=== PATIENT | female | born 1970 | race Caucasian/White ===

== ENCOUNTER 2018-05-02 19:40 | Emergency (ER) | payer MEDICAID ==
[2018-05-02 20:29] VITALS: BP 128/85
[2018-05-02] MEDS ORDERED: MORPHINE SULFATE 10 MG/ML INJ IV ONE (22:44)
[2018-05-02] MEDS ORDERED: ONDANSETRON HCL INJ/PF 4 MG/2 ML SDV IV ONE (22:44)
[2018-05-02] MEDS ORDERED: NORMAL SALINE 1000 ML 1,000 ML IV ONE (22:44)
--- NOTE | 2018-05-02 22:56 | ER Document Report ---
ED General - General Chief Complaint: Abdominal Pain Stated Complaint: STOMACH PAIN Time Seen by Provider: 05/02/18 22:39 Notes: Patient is a 47-year-old female presents with complaint of upper abdominal pain. Pain is mostly right upper quadrant and epigastric region. She has an unclear history and that she said when she is 2 years old she had a biopsy of her liver because she was told by her mom that her liver ducts were not growing appropriately. She has had no further treatment since that time. She says every now then she will have pain that lasts about 3 days but then eventually goes away. She has had pancreatitis before. 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 She does not drink alcohol. She does smoke. She is think she still has her gallbladder. Pain does not appear to be worse with eating. She has had some vomiting. No blood in emesis. No blood in her stool. No black or tarry stools. TRAVEL OUTSIDE OF THE [place] IN LAST 30 DAYS: No - Related Data Allergies/Adverse Reactions: metronidazole [From Flagyl] Allergy (Verified 05/02/18 19:44) Past Medical History - Social History Smoking Status: Current Every Day Smoker Frequency of alcohol use: None Drug Abuse: None Family History: Reviewed & Not Pertinent Review of Systems - Review of Systems Notes: My Normal Review Basic REVIEW OF SYSTEMS: CONSTITUTIONAL : Denies fever, chills, or sweats. Denies recent illness. EENT: Denies eye, ear, throat, or mouth pain or symptoms. Denies nasal or sinus congestion. CARDIOVASCULAR: Denies chest pain. RESPIRATORY: Denies cough, cold, or chest congestion. Denies shortness of breath, difficulty breathing, or wheezing. GASTROINTESTINAL: Epigastric and right upper quadrant abdominal pain. GENITOURINARY: Denies difficulty urinating, painful urination, burning, frequency, or blood in urine. FEMALE GENITOURINARY: Denies vaginal bleeding, abnormal or irregular periods. LMP: MUSCULOSKELETAL: Denies neck or back pain or joint pain or swelling. SKIN: Denies rash or skin lesions. NEUROLOGICAL: Denies altered mental status or loss of consciousness. Physical Exam - Vital signs Vitals: Temp Pulse Resp BP Pulse Ox 99.4 F 70 18 128/85 H 97 05/02/18 20:28 05/02/18 20:28 05/02/18 20:28 05/02/18 20:28 05/02/18 20:28 - Notes Notes: General Appearance: Well nourished, alert, cooperative, no acute distress, mild to moderate obvious discomfort. Vitals: reviewed, See vital signs table. Head: no swelling or tenderness to the head Eyes: PERRL, EOMI, Conjuctiva clear Mouth: No decreasd moisture Neck: Supple, no neck tenderness, No thyromegaly Lungs: No wheezing, No rales, No rhonci, No accessory muscle use, good air exchange bilaterally. Heart: Normal rate, Regular rythm, No murmur, no rub Abdomen: Normal BS, soft, No rigidity, some pain palpation over right upper quadrant epigastric region. , No guarding, no rebound, no abdominal masses, no organomegaly Extremities: strength 5/5 in all extremities, good pulses in all extremities, no swelling or tenderness in the extremities, no edema. Skin: warm, dry, appropriate color, no rash Neuro: speech clear, oriented x 3, normal affect, responds appropriately to questions. Course - Re-evaluation Re-evalutation: 05/03/18 06:37 This is chronic in the room patient is requesting to leave. Her friend who is her ride needs to get home. Patient's CBC CMP and lipase were all normal. Is no evidence of liver disease or pancreatitis on her blood work. I informed her still waiting for urine is hoping to get that back to make sure there is no signs of infection or blood in the urine which could represent possible kidney stone. Patient said she is feeling improved and was cannot wait for the urine. Talked her length about the possibility of gastritis being the most her pain is in the upper abdomen. She said she would like to try medication to help her gastritis and should follow-up with the GI doctor. I did give the number to 3 different GI doctors area to follow-up due to her recurrent chronic abdominal pain. Patient encouraged to return to ER if she has recurrent worsening abdominal pain, vomiting, fevers, or she feels unwell. Patient agrees with plan will be discharged home. Dictation of this chart was performed using voice recognition software; therefore, there may be some unintended grammatical errors. - Vital Signs Vital signs: Temp Pulse Resp BP Pulse Ox 99.4 F 70 18 128/85 H 97 05/02/18 20:28 08/20/18 20:28 05/02/18 20:28 05/02/18 20:28 05/02/18 20:28 - Laboratory Result Diagrams: 05/02/18 23:04 05/02/18 23:04 Laboratory results interpreted by me: 05/02/18 23:04 RBC 3.65 L Hgb 11.9 L Hct 34.7 L RDW 14.1 H Discharge - Discharge Clinical Impression: Abdominal pain Qualifiers: Abdominal location: unspecified location Qualified Code(s): R10.9 - Unspecified abdominal pain Condition: Good Disposition: HOME, SELF-CARE Additional Instructions: PLease take the medicaitons as prescribed. please follow up with the GI doctor for reevaluation and continued workup. Please return to the ER if you have recurrent worsennig pain, blood stools, black stools, fevers, or feel unwell. Prescriptions: Famotidine [Pepcid 40 mg Tablet] 40 mg PO DAILY #30 tablet Sucralfate [Carafate Susp 1 Gm/10 Ml Udcup] 1 gm PO ACHS 10 Days udc Referrals: ROMAN PERKINS MD [ACTIVE STAFF] - (call for close follow up appointment) FITO NOWAK MD [ACTIVE STAFF] - (call for close follow up appointment) COSMO GRIFFIN MD [ACTIVE STAFF] - (call for close follow up appointment)
[2018-05-02 23:16] LABS: ABSOLUTE LYMPHOCYTES (AUTO) 1.9 10^3/uL (0.5-4.7); ABSOLUTE MONOCYTES (AUTO) 0.3 10^3/uL (0.1-1.4); ABSOLUTE NEUT (AUTO) 2.2 10^3/uL (1.7-8.2); BASOPHILS % (AUTO) 0.4 % (0-2); HEMATOCRIT 34.7 % (36.0-47.0); HEMOGLOBIN 11.9 g/dL (12.0-15.5); LYMPHOCYTES % (AUTO) 42.3 % (13-45); MEAN CORPUSCULAR HEMOGLOBIN 32.5 pg (27.0-33.4); MEAN CORPUSCULAR HGB CONC 34.1 g/dL (32.0-36.0); MEAN CORPUSCULAR VOLUME 95 fl (80-97); PLATELET COUNT 289 10^3/uL (150-450); RED BLOOD COUNT 3.65 10^6/uL (3.72-5.28); RED CELL DISTRIBUTION WIDTH 14.1 % (11.5-14.0); SEGMENTED NEUTROPHILS % (AUTO) 49.3 % (42-78); TOTAL CELLS COUNTED % (AUTO) 100 %; WHITE BLOOD COUNT 4.4 10^3/uL (4.0-10.5)
[2018-05-02 23:36] LABS: ALANINE AMINOTRANSFERASE 35 U/L (9-52); ALBUMIN 4.2 g/dL (3.5-5.0); ALKALINE PHOSPHATASE 70 U/L (38-126); ANION GAP 9 (5-19); ASPARTATE AMINO TRANSFERASE 26 U/L (14-36); BILIRUBIN,DIRECT 0.2 mg/dL (0.0-0.4); BILIRUBIN,TOTAL 0.5 mg/dL (0.2-1.3); BLOOD UREA NITROGEN 11 mg/dL (7-20); CALCIUM 9.2 mg/dL (8.4-10.2); CARBON DIOXIDE 28 mmol/L (22-30); CHLORIDE 104 mmol/L (98-107); GLUCOSE 87 mg/dL (75-110); POTASSIUM 4.1 mmol/L (3.6-5.0); SODIUM 141.3 mmol/L (137-145); TOTAL PROTEIN 6.9 g/dL (6.3-8.2)
[2018-05-03 01:27] LABS: LIPASE 33.2 U/L (23-300)
== END 2018-05-03 01:31 | disposition home or self-care (01) ==
LOC: ER 19:40
DX: K29.70 Gastritis, unspecified, without bleeding (principal); R10.11 Right upper quadrant pain; R10.13 Epigastric pain; G89.29 Other chronic pain; F17.200 Nicotine dependence, unspecified, uncomplicated; R11.10 Vomiting, unspecified; Z87.19 Personal history of other diseases of the digestive system; Z88.1 Allergy status to other antibiotic agents
CPT/HCPCS: 99284; 96361; 96374; 96375; 36415; 83690; 85025; 80053; J2270; J2405; J7030

== ENCOUNTER → 2018-06-22 | Outpatient (CLI) | payer MEDICAID ==
--- NOTE | 2018-06-22 10:21 | WOMENS IMAGING REPORT ---
EXAM DESCRIPTION: U/S ABDOMEN LIMITED COMPLETED DATE/TIME: 06/22/2018 9:34 am REASON FOR STUDY: RIGHT UPPER QUADRANT PAIN R10.11 RIGHT UPPER QUADRANT PAIN K45.8 OTH ABDOMINAL H ERNIA WITHOUT OBSTRUCTION OR GANGRENE COMPARISON: Abdominal ultrasound 12/26/2013 TECHNIQUE: Dynamic and static grayscale images acquired of the abdomen and recorded on PACS. Additio nal selected color Doppler and spectral images recorded. LIMITATIONS: None. FINDINGS: PANCREAS: Midline pancreas unremarkable LIVER: No masses. Echotexture normal. LIVER VASCULATURE: Normal directional flow of the main portal vein and hepatic veins. GALLBLADDER: Adenomyosis along the gallbladder wall. No gallstones. No gallbladder wall thickening or pericholecystic fluid ULTRASOUND-DETECTED ROSS'S SIGN: Negative. INTRAHEPATIC DUCTS AND COMMON DUCT: Intrahepatic ducts normal caliber. Common bile duct measures 8 m m in diameter, mildly enlarged. Distal common duct not well seen due to duodenum gas INFERIOR VENA CAVA: Normal flow. AORTA: No aneurysm. RIGHT KIDNEY: Normal size. Normal echogenicity. No solid or suspicious masses. No hydronephrosis. No calcifications. PERITONEAL AND RIGHT PLEURAL SPACE: No ascites or effusions. OTHER: No other significant findings. IMPRESSION: Adenomyosis of the gallbladder. No gallstones, gallbladder wall thickening or perichole cystic fluid. Common bile duct mildly prominent TECHNICAL DOCUMENTATION: JOB ID: [id number]- All Rights Reserved Reading location - IP/workstation name: [email or web address]
== END ==
LOC: WI 08:55
PROVIDERS: ATTEND Nurse Practitioner Family
DX: K45.8 Other specified abdominal hernia without obstruction or gangrene (principal); R10.11 Right upper quadrant pain
CPT/HCPCS: 76705

== ENCOUNTER 2019-04-24 19:18 | Emergency (ER) | payer MEDICAID ==
[2019-04-24] MEDS ORDERED: TRAMADOL HCL 50 MG TABLET PO ONE (20:46)
--- NOTE | 2019-04-24 21:00 | ER Document Report ---
ED General - General Chief Complaint: Puncture Wound Stated Complaint: WOUND Time Seen by Provider: 04/24/19 20:41 Primary Care Provider: JEFF ELLIOTT NP [NO LOCAL MD] - Follow up as needed Mode of Arrival: Medic Information source: Patient TRAVEL OUTSIDE OF THE [place] IN LAST 30 DAYS: No - HPI Notes: Patient is brought in by ambulance. Patient states that she was trying to open a can of soup with scissors. She states she accidentally stabbed herself in the chest. She states that immediately after she had some trouble breathing but no longer feels that she has short of breath. She does have constant right-sided chest pain. It is worse when touched and better if left alone. It does not radiate. It is moderate in intensity and constant. She states that she has had no cough since the incident. Patient states she does not have a can dispatcher radio which is why she was using scissors to try to open the can of soup. She denies any other injuries. The pain is sharp. - Related Data Allergies/Adverse Reactions: metronidazole [From Flagyl] Allergy (Verified 04/24/19 19:28) Past Medical History - General Information source: Patient - Social History Smoking Status: Current Some Day Smoker Frequency of alcohol use: None Drug Abuse: Marijuana Family History: Reviewed & Not Pertinent Patient has suicidal ideation: No Patient has homicidal ideation: No - Past Medical History Cardiac Medical History: Denies: Hx Atrial Fibrillation, Hx Coronary Artery Disease Pulmonary Medical History: Reports: Hx COPD, Hx Pneumonia Renal/ Medical History: Denies: Hx Peritoneal Dialysis Psychiatric Medical History: Reports: Hx Bipolar Disorder, Hx Depression Review of Systems - Review of Systems Constitutional: denies: Chills, Fever Cardiovascular: Chest pain, Palpitations Respiratory: Hurts to breathe, Short of breath. denies: Cough -: Yes All other systems reviewed and negative Physical Exam - Vital signs Vitals: Temp Resp BP Pulse Ox 97.4 F 22 H 116/69 93 04/24/19 20:15 04/24/19 20:15 04/24/19 20:15 04/24/19 20:15 Interpretation: Normal - General General appearance: Appears well, Alert - HEENT Head: Normocephalic, Atraumatic Eyes: Normal Pupils: PERRL - Respiratory Respiratory status: No respiratory distress Chest status: Nontender Breath sounds: Rhonchi - Bilaterally Chest palpation: Other - Patient has a small half centimeter puncture wound to the right anterior chest. It is approximately 12:00 on the upper right breast. It is not actively bleeding. There is some mild swelling surrounding the site. - Cardiovascular Rhythm: Regular Heart sounds: Normal auscultation Murmur: No - Abdominal Inspection: Normal Distension: No distension Bowel sounds: Normal Tenderness: Nontender Organomegaly: No organomegaly - Back Back: Normal, Nontender - Extremities General upper extremity: Normal inspection, Nontender, Normal color, Normal ROM, Normal temperature General lower extremity: Normal inspection, Nontender, Normal color, Normal ROM, Normal temperature, Normal weight bearing. No: Surinder's sign - Neurological Neuro grossly intact: Yes Cognition: Normal Orientation: AAOx4 [place] Coma Scale Eye Opening: Spontaneous Yandel Coma Scale Verbal: Oriented Yandel Coma Scale Motor: Obeys Commands Yandel Coma Scale Total: 15 Speech: Normal Motor strength normal: LUE, RUE, LLE, RLE Sensory: Normal - Psychological Associated symptoms: Normal affect, Normal mood - Skin Skin Temperature: Warm Skin Moisture: Dry Skin Color: Normal Course - Re-evaluation Re-evalutation: 04/24/19 21:42 Patient reevaluated at this time. She is in no respiratory distress. Lung sounds are clear bilaterally. She is saturating 97% on room air. She is not tachycardic. - Vital Signs Vital signs: Temp Pulse Resp BP Pulse Ox 97.4 F 22 H 116/69 93 04/24/19 20:15 04/24/19 20:15 04/24/19 20:15 04/24/19 20:15 - Diagnostic Test Radiology reviewed: Image reviewed, Reports reviewed Radiology results interpreted by me: 04/24/19 20:59 I personally reviewed the patient's chest x-ray. It is a 2 view chest x-ray. There is no evidence of pneumothorax or infiltrate. Discharge - Discharge Clinical Impression: Puncture wound Condition: Stable Disposition: HOME, SELF-CARE Instructions: Puncture Wound ([facility]) Prescriptions: Cephalexin Monohydrate [Keflex 500 mg Capsule] 500 mg PO Q6H 5 Days capsule Hydrocodone/Acetaminophen [[place] 5-325 mg Tablet] 1 tab PO Q6 PRN 3 Days #10 tablet PRN Reason: Sulfamethoxazole/Trimethoprim [Bactrim Ds Tablet] 1 each PO BID 5 Days #10 tablet Referrals: JEFF ELLIOTT, AIR SUPPORT CONTROL OFFICER [NO LOCAL MD] - Follow up as needed
--- NOTE | 2019-04-24 21:16 | RADIOLOGY REPORT (SQ) ---
EXAM DESCRIPTION: XR CHEST 2 VIEWS COMPLETED DATE/TME: 04/24/2019 00:00 CLINICAL HISTORY: 48 years, Female, puncture wound COMPARISON: None. NUMBER OF VIEWS: 2 TECHNIQUE: Two views of the chest were obtained in AP and lateral projection. LIMITATIONS: None. FINDINGS: Unremarkable cardiac and mediastinal silhouette. Heart size is normal. Lungs are clear without focal opacity, pneumothorax or pleural effusions. The visualized bones are within normal limits. IMPRESSION: No acute cardiopulmonary abnormalities. copyright 2010 [employer]- All Rights Reserved
[2019-04-24] MEDS ORDERED: CEPHALEXIN 500 MG CAPSULE PO ONE (21:47)
[2019-04-24] MEDS ORDERED: HYDROCODONE/ACETAMINOPHEN 5-325 MG TABLET PO ONE (21:47)
[2019-04-24 22:55] VITALS: BP 142/78
== END 2019-04-24 22:52 | disposition home or self-care (01) ==
LOC: ER 19:18
DX: S21.131A Puncture wound without foreign body of right front wall of thorax without penetration into thoracic cavity, initial encounter (principal); R07.1 Chest pain on breathing; W27.2XXA Contact with scissors, initial encounter; F17.200 Nicotine dependence, unspecified, uncomplicated
CPT/HCPCS: 71046; 99283

== ENCOUNTER 2019-05-17 19:08 | Emergency (ER) | payer MEDICAID ==
--- NOTE | 2019-05-17 19:29 | ER Document Report ---
ED Medical Screen (RME) - General Chief Complaint: Foreign Body Stated Complaint: POSSIBLE NEEDLE STUCK IN ARM Time Seen by Provider: 05/17/19 19:26 Mode of Arrival: Ambulatory Information source: Patient Notes: 48-year-old female presented to ED for complaint of breaking off a needle in her left AC 4 days ago. She states she can still feel that the needle is there. She states that she stumbled and fell and became dizzy and injured herself and had so much pain that she shot up with cocaine 4 days ago. She states she knows it stupid and she does not usually do this but she was in a lot of pain. She states she smokes 1/2 pack a day does not drink used cocaine 4 days ago and uses marijuana. She lives alone. Patient states she has a history of bipolar depression. I have greeted and performed a rapid initial assessment of this patient. A comprehensive ED assessment and evaluation of the patient, analysis of test results and completion of medical decision making process will be conducted by an additional ED providers. TRAVEL OUTSIDE OF THE [place] IN LAST 30 DAYS: No - Related Data Allergies/Adverse Reactions: metronidazole [From Flagyl] Allergy (Verified 05/17/19 19:09) Past Medical History - Past Medical History Cardiac Medical History: Denies: Hx Atrial Fibrillation, Hx Coronary Artery Disease Pulmonary Medical History: Reports: Hx COPD, Hx Pneumonia Renal/ Medical History: Denies: Hx Peritoneal Dialysis Psychiatric Medical History: Reports: Hx Bipolar Disorder, Hx Depression Physical Exam - Vital signs Vitals: Temp Pulse Resp BP Pulse Ox 98.7 F 78 14 133/74 H 95 05/17/19 19:12 05/17/19 19:12 05/17/19 19:12 05/17/19 19:12 05/17/19 19:12 Course - Vital Signs Vital signs: Temp Pulse Resp BP Pulse Ox 98.7 F 78 14 133/74 H 95 05/17/19 19:12 05/17/19 19:12 05/17/19 19:12 05/17/19 19:12 05/17/19 19:12
--- NOTE | 2019-05-17 19:46 | RADIOLOGY REPORT (SQ) ---
EXAM DESCRIPTION: ELBOW LEFT AP/LATERAL COMPLETED DATE/TIME: 05/17/2019 7:38 pm REASON FOR STUDY: States broke needle off and arm COMPARISON: None. NUMBER OF VIEWS: Two views. TECHNIQUE: AP and lateral radiographic images acquired of the left elbow. LIMITATIONS: None. FINDINGS: MINERALIZATION: Normal. BONES: No acute fracture or dislocation. No worrisome bone lesions. JOINT: No effusion. SOFT TISSUES: A portion of a needle is seen in the anterior soft tissues. OTHER: No other significant finding. IMPRESSION: Foreign body. TECHNICAL DOCUMENTATION: JOB ID: [id number] [employer]- All Rights Reserved Reading location - IP/workstation name: [email or web address]
--- NOTE | 2019-05-17 20:59 | ER Document Report ---
ED Foreign Body - General Chief Complaint: Foreign Body Stated Complaint: POSSIBLE NEEDLE STUCK IN ARM Time Seen by Provider: 05/17/19 20:59 Mode of Arrival: Ambulatory Information source: Patient, Relative Notes: HISTORY OF PRESENT ILLNESS: Patient is a 48-year-old female with a past medical history of drug abuse who presents with a needle foreign body lodged in her left forearm. Patient reports that 3 days ago she was using IV drugs when she "lost the needle." She denies needle sharing and reports that she uses alcohol swabs to clean both the needle and the skin prior to using. She denies fevers or chills. Mechanism of injury: Using IV drugs Location: Left forearm Onset: Sudden Provocation: Movement, flexing Quality: Aching Radiation: None Severity: Mild Timing: Consistent Numbness/Tingling: None Dominant hand: Left REVIEW OF SYSTEMS: CONSTITUTIONAL : Denies fever or chills, no sweats. Denies recent illness. EENT: Denies eye, ear, throat, or mouth pain or symptoms. Denies nasal or sinus congestion. CARDIOVASCULAR: Denies chest pain. RESPIRATORY: Denies cough, cold, or chest congestion. Denies shortness of breath, difficulty breathing, or wheezing. GASTROINTESTINAL: Denies abdominal pain. Denies nausea, vomiting, or diarrhea. Denies constipation. GENITOURINARY: Denies difficulty urinating, painful urination, burning, frequency, or blood in urine. FEMALE GENITOURINARY: Denies vaginal bleeding, abnormal or irregular periods. MUSCULOSKELETAL: Positive for left forearm pain. Denies neck or back pain or joint pain or swelling. SKIN: Denies rash or skin lesions. HEMATOLOGIC : Denies easy bruising or bleeding. LYMPHATIC: Denies swollen, enlarged glands. NEUROLOGICAL: Denies weakness or paralysis or loss of use of either side. Denies problems with gait or speech. Denies sensory or motor loss. PSYCHIATRIC: Denies anxiety or stress or depression. All other systems reviewed and negative. PHYSICAL EXAMINATION: GENERAL: Well-appearing, well-nourished and in no acute distress. HEAD: Atraumatic, normocephalic. No scalp deformity, depression, or crepitance. EYES: Pupils are 3 mm and equal/round/reactive to light, extraocular movements intact, sclera anicteric, conjunctiva are normal. ENT: Nares patent bilaterally, oropharynx clear without exudates or palatal petechia. Moist mucous membranes. No tonsil hypertrophy. NECK: Normal range of motion, supple without lymphadenopathy. LUNGS: Breath sounds present, equal, and clear to auscultation bilaterally. No wheezes, rales, or rhonchi. HEART: Regular rate and rhythm without murmurs, rubs, or gallops. 2+ peripheral pulses. Normal capillary refill. ABDOMEN: Soft, nontender, nondistended. Normoactive bowel sounds. No guarding, no rebound. No masses appreciated. BACK: Normal contour, no midline tenderness. Rectal exam deferred. GENITAL/PELVC: Deferred. EXTREMITIES: Small area of swelling and ecchymosis formation to the left and capital fossa, no draining or bleeding. Normal range of motion, no obvious deformity. No pitting or edema. No cyanosis and normal capillary refill <2 seconds. NEUROLOGICAL: No focal neurological deficits. Moves all extremities spontaneou sly and on command. PSYCH: Normal mood, normal affect. No suicidal thoughts/ideations. No homicidal thoughts/ideations. No hallucinations. SKIN: Warm, dry, normal turgor, no rashes or lesions noted. ASSESSMENT AND PLAN: This patient is a 48-year-old female who presents with possible needle foreign body in the left forearm. Initial x-ray confirms metallic foreign body but cannot confirm if it is contained within the soft tissues or in the intravascular space. 1. Will obtain ultrasound and reassess. 2. Will give oral Keflex and tetanus booster. TRAVEL OUTSIDE OF THE [place] IN LAST 30 DAYS: No - HPI Location of foreign body: Elbow Onset: Other - 3 days ago Onset/Duration: Gradual Quality of pain: Achy Severity: Mild Pain Level: 1 Context: Other - Using IV drugs Associated symptoms: None Exacerbated by: Movement Relieved by: Denies Similar symptoms previously: No Recently seen / treated by doctor: No - Related Data Allergies/Adverse Reactions: metronidazole [From Flagyl] Allergy (Verified 05/17/19 19:09) Past Medical History - General Information source: Patient - Social History Smoking Status: Current Every Day Smoker Chew tobacco use (# tins/day): No Frequency of alcohol use: None Drug Abuse: Cocaine Lives with: Family Family History: Reviewed & Not Pertinent Patient has suicidal ideation: No Patient has homicidal ideation: No - Past Medical History Cardiac Medical History: Denies: Hx Atrial Fibrillation, Hx Coronary Artery Disease Pulmonary Medical History: Reports: Hx COPD, Hx Pneumonia EENT Medical History: Reports: None Neurological Medical History: Reports: None Endocrine Medical History: Reports: None Renal/ Medical History: Reports: None. Denies: Hx Peritoneal Dialysis Malignancy Medical History: Reports: None GI Medical History: Reports: None Musculoskeletal Medical History: Reports None Skin Medical History: Reports None Psychiatric Medical History: Reports: Hx Bipolar Disorder, Hx Depression Traumatic Medical History: Reports: None Infectious Medical History: Reports: None Past Surgical History: Reports: Hx Hysterectomy - Immunizations Immunizations up to date: Yes Review of Systems - Review of Systems Constitutional: No symptoms reported EENT: No symptoms reported Cardiovascular: No symptoms reported Respiratory: No symptoms reported Gastrointestinal: No symptoms reported Genitourinary: No symptoms reported Female Genitourinary: No symptoms reported Musculoskeletal: See HPI, Joint swelling Skin: No symptoms reported Hematologic/Lymphatic: No symptoms reported Neurological/Psychological: No symptoms reported -: Yes All other systems reviewed and negative Physical Exam - Vital signs Vitals: Temp Pulse Resp BP Pulse Ox 98.7 F 78 14 133/74 H 95 05/17/19 19:12 05/17/19 19:12 05/17/19 19:12 05/17/19 19:12 05/17/19 19:12 Interpretation: Normal - General General appearance: Appears well, Alert - HEENT Head: Normocephalic, Atraumatic Eyes: Normal Pupils: PERRL - Respiratory Respiratory status: No respiratory distress Chest status: Nontender Breath sounds: Normal Chest palpation: Normal - Cardiovascular Rhythm: Regular Heart sounds: Normal auscultation Murmur: No - Abdominal Inspection: Normal Distension: No distension Bowel sounds: Normal Tenderness: Nontender Organomegaly: No organomegaly - Back Back: Normal, Nontender - Extremities General upper extremity: Normal inspection, Nontender, Normal color, Normal ROM, Normal temperature General lower extremity: Normal inspection, Nontender, Normal color, Normal ROM, Normal temperature, Normal weight bearing. No: Surinder's sign - Neurological Neuro grossly intact: Yes Cognition: Normal Orientation: AAOx4 [place] Coma Scale Eye Opening: Spontaneous [place] Coma Scale Verbal: Oriented Yandel Coma Scale Motor: Obeys Commands [place] Coma Scale Total: 15 Speech: Normal Motor strength normal: LUE, RUE, LLE, RLE Sensory: Normal - Psychological Associated symptoms: Normal affect, Normal mood - Skin Skin Temperature: Warm Skin Moisture: Dry Skin Color: Normal Course - Re-evaluation Re-evalutation: 05/17/19 23:43 Ultrasound confirms that the metallic foreign body is only 2.6 mm into the subcutaneous space and does not contain within the intravascular space. Will discharge the patient home with strict return precautions and follow-up with surgery. All results were explained to and discussed with the patient, and all questions addressed and answered for the patient. The patient voices both understanding and agreeing with the plan. - Vital Signs Vital signs: Temp Pulse Resp BP Pulse Ox 98.7 F 78 14 133/74 H 95 05/17/19 19:12 05/17/19 19:12 05/17/19 19:12 05/17/19 19:12 05/17/19 19:12 - Diagnostic Test Radiology reviewed: Image reviewed, Reports reviewed Discharge - Discharge Clinical Impression: Foreign body (FB) in soft tissue Condition: Good Disposition: HOME, SELF-CARE Instructions: Retained Subcutaneous Foreign Object ([facility]) Additional Instructions: You have been evaluated in the Emergency Department for have any foreign body lodged in your left forearm. While here, you had an ultrasound that confirms the foreign body is not in a blood vessel and it is now safe to be discharged home. Please follow-up with your primary physician as well as surgery as instructed in 1 week. Return to the Emergency Department if you experience increased swelling of your arm, drainage, high fevers, or any other concerning symptoms. Prescriptions: Cephalexin Monohydrate [Keflex 500 mg Capsule] 500 mg PO Q6H 7 Days #28 capsule Naproxen Sodium [Naproxen Sodium ER] 500 mg PO DAILY #30 tablet.sa Referrals: SAMEERA FORREST MD [ACTIVE STAFF] - Follow up as needed Print Language: [place]
[2019-05-17] MEDS ORDERED: CEPHALEXIN 500 MG CAPSULE PO ONE (21:35)
[2019-05-17] MEDS ORDERED: TRAMADOL HCL 50 MG TABLET PO ONE (21:35)
[2019-05-17] MEDS ORDERED: DIPH/PERTUSS(ACELL)/TETANUS VAC/PF 0.5 ML SYR (>=10YO) IM ONE (21:35)
--- NOTE | 2019-05-17 22:33 | RADIOLOGY REPORT (SQ) ---
Ultrasound left antecubital fossa limited on 05/17/2019 at 9:58 PM CLINICAL INDICATION: Foreign body in left antecubital fossa COMPARISON: Left elbow x-ray from 05/17/2019 FINDINGS: Limited sonographic imaging is performed throughout the area of interest in the left antecubital fossa. There is a echogenic focus in the antecubital fossa subcutaneous tissues corresponding to the broken portion of a needle visualized on the x-ray. No mass or fluid collection is noted. IMPRESSION: Echogenic focus in the subcutaneous tissues corresponding to the broken needle visualized in the antecubital fossa subcutaneous tissues relatively superficially in the soft tissues only approximately 2.6 mm from the skin surface.
[2019-05-17 23:59] VITALS: BP 142/72
== END 2019-05-17 23:57 | disposition home or self-care (01) ==
LOC: ER 19:08
DX: S50.852A Superficial foreign body of left forearm, initial encounter (principal); W45.8XXA Other foreign body or object entering through skin, initial encounter; Y93.89 Activity, other specified; F14.10 Cocaine abuse, uncomplicated; M25.40 Effusion, unspecified joint; J44.9 Chronic obstructive pulmonary disease, unspecified; Z88.1 Allergy status to other antibiotic agents
CPT/HCPCS: 76882; 90471; 90715; 99284

== ENCOUNTER 2019-05-23 10:19 | Day surgery (SDC) | payer MEDICAID ==
[~2019-05-23 10:19] MED LIST: ACETAMINOPHEN 0 MG/0 ML RTUPB IV ONE; ACETAMINOPHEN 1,000 MG/100 ML RTUPB IV SCH; CEFAZOLIN SODIUM 2 GM in DEXTROSE 5%-WATER 100 ML IV PRN; RINGERS SOLUTION,LACTATED 1,000 ML IV PRN
[2019-05-23] MEDS ORDERED: ALBUTEROL SULFATE 0.083% NEB 2.5 MG/3 ML AMPUL NEB ONE (11:00)
[2019-05-23] MEDS ORDERED: MIDAZOLAM 2 MG/2 ML INJ ONE (11:05)
[2019-05-23] MEDS ORDERED: MORPHINE SULFATE 10 MG/ML INJ ONE (11:06)
[2019-05-23] MEDS ORDERED: PROPOFOL INJ 200 MG/20 ML VIAL IV ONE ×2 (11:06→11:15)
[2019-05-23] MEDS ORDERED: ONDANSETRON HCL INJ/PF 4 MG/2 ML SDV ONE (11:14)
[2019-05-23] MEDS ORDERED: FENTANYL CITRATE INJ/PF 100 MCG/2 ML AMPUL ONE (11:14)
[2019-05-23 11:42] LABS: HEMATOCRIT 41.7 % (36.0-47.0); HEMOGLOBIN 13.9 g/dL (12.0-15.5); MEAN CORPUSCULAR HEMOGLOBIN 30.5 pg (27.0-33.4); MEAN CORPUSCULAR HGB CONC 33.3 g/dL (32.0-36.0); MEAN CORPUSCULAR VOLUME 92 fl (80-97); PLATELET COUNT 305 10^3/uL (150-450); RED BLOOD COUNT 4.55 10^6/uL (3.72-5.28); RED CELL DISTRIBUTION WIDTH 13.1 % (11.5-14.0); WHITE BLOOD COUNT 5.7 10^3/uL (4.0-10.5)
[2019-05-23 11:53] LABS: URINE BARBITURATES SCREEN NEGATIVE; URINE BENZODIAZEPINES SCREEN NEGATIVE; URINE COCAINE SCREEN NEGATIVE; URINE METHADONE SCREEN NEGATIVE; URINE PHENCYCLIDINE SCREEN NEGATIVE
[2019-05-23 11:57] LABS: URINE AMPHETAMINES SCREEN UNCONFIRMED POSITIVE; URINE MARIJUANA (THC) SCREEN UNCONFIRMED POSITIVE
[2019-05-23] MEDS ORDERED: BUPIVACAINE HCL 0.25 % INJ/PF (2.5 MG/1 ML) 30 ML VIAL ONE (11:57)
[2019-05-23 12:03] LABS: ANION GAP 6 (5-19); BLOOD UREA NITROGEN 8 mg/dL (7-20); CALCIUM 9.6 mg/dL (8.4-10.2); CARBON DIOXIDE 27 mmol/L (22-30); CHLORIDE 107 mmol/L (98-107); GLUCOSE 80 mg/dL (75-110); POTASSIUM 5.3 mmol/L (3.6-5.0)
--- NOTE | 2019-05-23 12:04 | RADIOLOGY REPORT (SQ) ---
EXAM DESCRIPTION: CHEST SINGLE VIEW COMPLETED DATE/TIME: 05/23/2019 11:55 am REASON FOR STUDY: PREOP COMPARISON: 04/24/2019 NUMBER OF VIEWS: Two views TECHNIQUE: Single frontal radiographic view of the chest acquired. LIMITATIONS: None. FINDINGS: LUNGS AND PLEURA: Lung fishman are hyperexpanded otherwise clear. No consolidation or effu sions. MEDIASTINUM AND HILAR STRUCTURES: No masses. Contour normal. HEART AND VASCULAR STRUCTURES: Heart normal in size. Normal vasculature. BONES: No acute findings. HARDWARE: None in the chest. OTHER: No other significant finding. IMPRESSION: Hyperexpansion. No other significant findings. TECHNICAL DOCUMENTATION: JOB ID: [id number] [employer]- All Rights Reserved Reading location - IP/workstation name: [email or web address]
[2019-05-23] MEDS ORDERED: LIDOCAINE 1% INJ-PF (10 MG/ML) 30 ML SDV ONE (12:22)
[2019-05-23] MEDS ORDERED: PROMETHAZINE HCL INJ 25 MG/1 ML VIAL IV PRN (12:40)
[2019-05-23] MEDS ORDERED: OXYCODONE-ACETAMINOPHEN 5-325 MG TABLET ONE (13:22)
[2019-05-23 14:49] VITALS: BP 133/72
--- NOTE | 2019-05-23 14:52 | RADIOLOGY REPORT (SQ) ---
EXAM DESCRIPTION: ELBOW LEFT AP/LATERAL; NO CHG FLUORO COMPLETED DATE/TIME: 05/23/2019 2:45 pm REASON FOR STUDY: FOREIGN BODY REMOVAL LEFT ELBOW ASST WITH FLUORO IN OR S50.859A SUPERFICIAL FOREI GN BODY OF UNSPECIFIED FOREARM, IN COMPARISON: 0.5 minutes FLUOROSCOPY TIME: 0.5 minutes Spot images saved to PACS. TECHNIQUE: Intra-operative images acquired during surgical procedure to evaluate progress. NUMBER OF IMAGES: 2 LIMITATIONS: None. FINDINGS: Fluoroscopy was provided for intraoperative procedure. Please refer to the operative repo rt for further discussion. IMPRESSION: IMAGE(S) OBTAINED DURING PROCEDURE. COMMENT: Quality ID [id number]: Final reports for procedures using fluoroscopy that document radiation exp osure indices, or exposure time and number of fluorographic images (if radiation exposure indices are not available) Please consult full operative report of the attending physician for description of the procedure. TECHNICAL DOCUMENTATION: JOB ID: [id number] [employer]- All Rights Reserved Reading location - IP/workstation name: [email or web address]
--- NOTE | 2019-05-23 14:52 | RADIOLOGY REPORT (SQ) ---
EXAM DESCRIPTION: ELBOW LEFT AP/LATERAL; NO CHG FLUORO COMPLETED DATE/TIME: 05/23/2019 2:45 pm REASON FOR STUDY: FOREIGN BODY REMOVAL LEFT ELBOW ASST WITH FLUORO IN OR S50.859A SUPERFICIAL FOREI GN BODY OF UNSPECIFIED FOREARM, IN COMPARISON: 0.5 minutes FLUOROSCOPY TIME: 0.5 minutes Spot images saved to PACS. TECHNIQUE: Intra-operative images acquired during surgical procedure to evaluate progress. NUMBER OF IMAGES: 2 LIMITATIONS: None. FINDINGS: Fluoroscopy was provided for intraoperative procedure. Please refer to the operative repo rt for further discussion. IMPRESSION: IMAGE(S) OBTAINED DURING PROCEDURE. COMMENT: Quality ID [id number]: Final reports for procedures using fluoroscopy that document radiation exp osure indices, or exposure time and number of fluorographic images (if radiation exposure indices are not available) Please consult full operative report of the attending physician for description of the procedure. TECHNICAL DOCUMENTATION: JOB ID: [id number] [employer]- All Rights Reserved Reading location - IP/workstation name: [email or web address]
--- NOTE | 2019-05-23 21:02 | EKG REPORT ---
SEVERITY:- NORMAL ECG - SINUS RHYTHM : Confirmed by: Meron Altamirano MD 23-May-2019 21:01:38
--- NOTE | 2019-05-26 08:47 | Discharge Summary ---
Discharge Summary (SDC) - Discharge Final Diagnosis: Metallic foreign body left upper extremity Date of Surgery: 05/23/19 Discharge Date: 05/23/19 Condition: Stable Forms: ASU Anesthesia D/C Instruction, Discharge POC-Surgical Service Treatment or Instructions: Diet as tolerated Non strenous activity. Follow up 7-10 days Ok to remove bandage and shower tomorrow, wash incision with soap and water. Place small amount of Neosporin and Band-aid on incision everyday. Referrals: RAHUL DAVIDSON MD [ACTIVE STAFF] - 05/30/19 1:15 pm Discharge Diet: As Tolerated Respiratory Treatments at Home: Deep Breathing/Coughing, Incentive Spirometer Discharge Activity: Activity As Tolerated, Other Home Care Assistance: None Needed Report the Following to Your Physician Immediately: Shortness of Breath, Nausea, Vomiting, Increase in Pain, Fever over 101 Degrees, Unusual Bleeding, Redness, Swelling, Increased Soreness, Drainage-Yellow, Drainage-Chicas, Drainage-Green, Drainage-Foul Smelling, Numbness, Tingling Sensation, IV Site Infection Signs
--- NOTE | 2019-05-26 09:01 | Operative Report ---
Nonrecallable Operative Report DATE OF SURGERY: 05/23/19 PREOPERATIVE DIAGNOSIS: Metallic foreign body of the left upper extremity POSTOPERATIVE DIAGNOSIS: Same as above OPERATION: 1. Exploration of the left antecubital fossa with extraction of metallic foreign body. 2. Fluoroscopic localization of metallic foreign body of the left upper extremity. 3. Incision and drainage of left upper extremity abscess. SURGEON: RAHUL DAVIDSON ANESTHESIA: LMAC TISSUE REMOVED OR ALTERED: Metallic foreign body left upper extremity. COMPLICATIONS: None apparent ESTIMATED BLOOD LOSS: Minimal PROCEDURE: Drains/implants: 4 x 4 packing. Procedure in detail: After informed consent was obtained, the patient was brought to the operating room and laid in the supine position. The area of the left upper extremity was prepped and draped in a normal sterile fashion. Fluoroscopy was used in 2 different planes to localize the metallic foreign body within the antecubital fossa. A small incision was created over the area of the metallic foreign body. A small abscess cavity was identified in the soft tissues of the antecubital fossa. The wound was irrigated with saline. The metallic foreign body was easily identified. Was grasped with a hemostat and removed. The wound was then copiously irrigated. A 4 x 4 dressing was placed. The procedure was at this time concluded. All sponge, instrument, and needle counts were correct x2. Condition: Stable.
== END 2019-05-23 14:35 | disposition home or self-care (01) ==
LOC: OROUT 10:19
PROVIDERS: ATTEND Surgery
DX: S50.859A Superficial foreign body of unspecified forearm, initial encounter (principal); X58.XXXA Exposure to other specified factors, initial encounter; L02.414 Cutaneous abscess of left upper limb; J45.909 Unspecified asthma, uncomplicated
CPT/HCPCS: 36415; 85027; 80048; 80307; 71045; 73070; 93005; 93010; 94640; 01710; 10060; 24201; J2250; J0690; J3010; J3490; J2270; S0020; J7060; J2704; J0131; J2405

== ENCOUNTER 2020-06-24 17:38 | Emergency (ER) | payer MEDICAID ==
[2020-06-24 18:15] VITALS: BP 107/79
--- NOTE | 2020-06-24 18:46 | ER Document Report ---
ED Medical Screen (RME) - General Chief Complaint: Headache Stated Complaint: HEADACHES/POST HEAD INJURY Time Seen by Provider: 06/24/20 18:36 Primary Care Provider: LARISSA CAMPOS MD [Primary Care Provider] - Follow up as needed Mode of Arrival: Ambulatory Information source: Patient Notes: HPI; 49-year-old female presents emergency room complaining of persistent hea daches, blurred vision, and memory loss since hitting her head back in February on a door jam. Patient denies any loss of consciousness. Patient states ever since she hurt her head she has been pulling what she states is "black bugs" out of my head. States I have cut off both of my hair because of the bugs. States she has been seen at [facility], [place] and was prescribed a shampoo which she states quintero s not been helping. Complains of nausea vomiting, not taking any medications for her symptoms. PE: Alert and oriented x3. PERRLA, EOMI multiple open sores noted to her scalp. Lungs: Clear to auscultation without rales, rhonchi, wheezes. Heart: Regular rate and rhythm without murmurs, rubs, gallops. I have greeted and performed a rapid initial assessment of this patient. A comprehensive ED assessment and evaluation of the patient, analysis of test results and completion of the medical decision making process will be conducted by additional ED providers. I have specifically instructed the patient or family members with the patient to immediately return to any nursing staff should anything change in the patient's condition or with their chief complaint. TRAVEL OUTSIDE OF THE [place] IN LAST 30 DAYS: No - Related Data Allergies/Adverse Reactions: acetaminophen [From Tylenol-Codeine #3] Allergy (Verified 05/23/19 11:54) codeine [From Tylenol-Codeine #3] Allergy (Verified 05/23/19 11:54) metronidazole [From Flagyl] Allergy (Verified 05/17/19 19:09) Past Medical History - Social History Frequency of alcohol use: None Drug Abuse: Marijuana - Past Medical History Cardiac Medical History: Denies: Hx Atrial Fibrillation, Hx Coronary Artery Disease, Hx Heart Attack, Hx Hypertension Pulmonary Medical History: Reports: Hx Asthma Denies: Hx Bronchitis, Hx COPD, Hx Pneumonia Neurological Medical History: Denies: Hx Cerebrovascular Accident, Hx Seizures Renal/ Medical History: Denies: Hx Peritoneal Dialysis Musculoskeltal Medical History: Denies Hx Arthritis Psychiatric Medical History: Reports: Hx Bipolar Disorder, Hx Depression Past Surgical History: Reports: Hx Hysterectomy - Immunizations Immunizations up to date: Yes Hx Diphtheria, Pertussis, Tetanus Vaccination: No Physical Exam - Vital signs Vitals: Temp Pulse Resp BP Pulse Ox 98.3 F 87 20 107/79 94 06/24/20 18:13 06/24/20 18:13 06/24/20 18:13 06/24/20 18:13 06/24/20 18:13 Course - Vital Signs Vital signs: Temp Pulse Resp BP Pulse Ox 98.3 F 87 20 107/79 94 06/24/20 18:13 06/24/20 18:13 06/24/20 18:13 06/24/20 18:13 06/24/20 18:13 Doctor's Discharge - Discharge Referrals: LARISSA CAMPOS MD [Primary Care Provider] - Follow up as needed
[2020-06-24 19:12] LABS: ABSOLUTE EOSINOPHILS # (AUTO) 0.2 10^3/uL (0.0-0.6); ABSOLUTE LYMPHOCYTES (AUTO) 3.1 10^3/uL (0.5-4.7); ABSOLUTE MONOCYTES (AUTO) 0.4 10^3/uL (0.1-1.4); BASOPHILS % (AUTO) 0.7 % (0-2); HEMATOCRIT 44.5 % (36.0-47.0); HEMOGLOBIN 15.1 g/dL (12.0-15.5); LYMPHOCYTES % (AUTO) 46.8 % (13-45); MEAN CORPUSCULAR HEMOGLOBIN 31.7 pg (27.0-33.4); MEAN CORPUSCULAR VOLUME 93 fl (80-97); MONOCYTES % (AUTO) 5.3 % (3-13); RED BLOOD COUNT 4.77 10^6/uL (3.72-5.28); SEGMENTED NEUTROPHILS % (AUTO) 44.2 % (42-78); TOTAL CELLS COUNTED % (AUTO) 100 %; WHITE BLOOD COUNT 6.7 10^3/uL (4.0-10.5)
[2020-06-24 19:26] LABS: ALBUMIN 4.9 g/dL (3.5-5.0); ALKALINE PHOSPHATASE 73 U/L (38-126); ANION GAP 9 (5-19); APPEARANCE,URINE CLEAR; ASPARTATE AMINO TRANSFERASE 23 U/L (14-36); BILIRUBIN,DIRECT 0.3 mg/dL (0.0-0.4); BILIRUBIN,TOTAL 0.4 mg/dL (0.2-1.3); BILIRUBIN,URINE NEGATIVE (NEGATIVE); BLOOD UREA NITROGEN 16 mg/dL (7-20); CALCIUM 10.1 mg/dL (8.4-10.2); CARBON DIOXIDE 32 mmol/L (22-30); CHLORIDE 97 mmol/L (98-107); COLOR,URINE YELLOW; GLUCOSE 100 mg/dL (75-110); GLUCOSE, URINE NEGATIVE (NEGATIVE); KETONES,URINE NEGATIVE (NEGATIVE); LEUKOCYTE ESTERASE,URINE NEGATIVE (NEGATIVE); NITRITE,URINE NEGATIVE (NEGATIVE); POTASSIUM 5.1 mmol/L (3.6-5.0); PROTEIN,URINE NEGATIVE (NEGATIVE); TOTAL PROTEIN 7.7 g/dL (6.3-8.2); URINE SPECIFIC GRAVITY 1.013; UROBILINOGEN,URINE NEGATIVE mg/dL (<2.0)
[2020-06-24 19:39] LABS: PLATELET COUNT 322 10^3/uL (150-450)
[2020-06-24 19:44] LABS: URINE AMPHETAMINES SCREEN NEGATIVE; URINE BARBITURATES SCREEN NEGATIVE; URINE BENZODIAZEPINES SCREEN NEGATIVE; URINE COCAINE SCREEN NEGATIVE; URINE MARIJUANA (THC) SCREEN NEGATIVE; URINE METHADONE SCREEN NEGATIVE; URINE PHENCYCLIDINE SCREEN NEGATIVE
== END 2020-06-25 01:09 | disposition left against medical advice (07) ==
LOC: ER 17:38
DX: R51.9 Headache, unspecified (principal); H53.8 Other visual disturbances; R41.3 Other amnesia; R11.2 Nausea with vomiting, unspecified; J45.909 Unspecified asthma, uncomplicated; Z88.8 Allergy status to other drugs, medicaments and biological substances; Z88.6 Allergy status to analgesic agent; Z88.5 Allergy status to narcotic agent; Z88.1 Allergy status to other antibiotic agents; Z53.20 Procedure and treatment not carried out because of patient's decision for unspecified reasons
CPT/HCPCS: 36415; 80053; 80307; 81001; 85025; 99281